=== PATIENT | female | born 1970 | race American Indian/Alaskan Native ===

== ENCOUNTER 2020-12-20 19:52 | Emergency (ER) | payer MEDICAID, OTHER ==
[~2020-12-20] VITALS: Ht 165.1 cm; Wt 129.6 kg
[2020-12-20 22:16] LABS: URINE HCG NEGATIVE (NEG)
[2020-12-20 22:19] VITALS: BP 111/48
[2020-12-20 22:19] LABS: CLARITY,URINE SLIGHTLY CLOUDY (Clear); GLUCOSE, URINE >=1000 mg/dl (Neg); KETONES,URINE NEGATIVE (Neg); LEUKOCYTE ESTERASE ,URINE MODERATE (Neg); NITRITES, URINE NEGATIVE (Neg); OCCULT BLOOD,URINE LARGE (Neg); PROTEIN,URINE NEGATIVE (Neg)
[2020-12-20 22:21] LABS: UA COLLECTION TYPE CLN CATCH MIDSTREAM
[2020-12-20 22:22] LABS: COLOR,URINE PINK (Yellow)
[2020-12-20 22:32] LABS: RBC,URINE 20-50 /HPF (0-2)
[2020-12-20 22:33] LABS: BACTERIA,URINE 4+ /HPF (Neg); SQUAMOUS EPITHELIAL CELL,UR MODERATE /LPF (FEW); WBC,URINE 30-50 /HPF (0-4)
[2020-12-20 22:34] LABS: YEAST FEW /HPF (NEGATIVE)
[2020-12-20] MEDS ORDERED: PHEN-786 PO (22:54)
[2020-12-20] MEDS ORDERED: NITR100C6 PO (22:54)
[2020-12-20] MEDS ORDERED: phenazopyridine 100mg tablet PO ONE (22:55)
[2020-12-20] MEDS ORDERED: nitrofuran/nitrofuran macrocrysal 100 MG capsule PO ONE (22:55)
[2020-12-20] MEDS ORDERED: ibuprofen tablet 400 MG TABLET PO ONE (23:10)
== END 2020-12-20 23:21 | disposition home or self-care (01) ==
LOC: ER 19:52
DX: N30.90 Cystitis, unspecified without hematuria (principal); I10 Essential (primary) hypertension; E11.9 Type 2 diabetes mellitus without complications; Z87.440 Personal history of urinary (tract) infections; Z98.891 History of uterine scar from previous surgery; Z90.49 Acquired absence of other specified parts of digestive tract
CPT/HCPCS: 81001; 81025; 87077; 87088; 87186; 99284